=== PATIENT | female | born 1955 | race Caucasian/White ===

== ENCOUNTER → 2017-04-16 | Day surgery (SDC) | payer BC ==
[~2017-04-16] MED LIST: CELEXA PO; LEVOTHYROXINE112 MCG PO; LISINOPRIL PO; MOBIC PO; PROBIOTIC1 EAC2 PO; SYNTHROID PO
--- NOTE | ~2017-04-16 | OR ---
Unit #: [id number] #: [id number] Patient: KAHLIL CABRERA [id number] [address] [place], [place] [address] [id number] MR#: [id number] NAME: KAHLIL CABRERA ROOM: Date of Procedure: 04/16/2017 Admission Date: 04/16/2017 Surgeon: Kurt Haney M.D. : 1955 Attending Physician: Kurt Haney M.D. Primary Care Physician: Tuan Hare M.D. OPERATIVE REPORT PREOPERATIVE DIAGNOSIS Screening colonoscopy. POSTOPERATIVE DIAGNOSIS Scattered diverticulum. PROCEDURE PERFORMED Colonoscopy to cecum. ANESTHESIA IV sedation. COMPLICATIONS None. INDICATIONS FOR PROCEDURE The patient is a 61-year-old, who presents for screening colonoscopy. DESCRIPTION OF PROCEDURE The patient was taken to the operating theater and placed in left lateral decubitus position. IV sedation was initiated. Digital rectal exam was normal. Colonoscope was then passed under direct vision and navigated to the cecum. The patient had excellent prep. I visualized the entire colon. I saw no evidence of neoplastic disease. She did have scattered diverticulum throughout the colon. These were noninflamed. There were no other abnormalities. She tolerated the procedure well and sent to the recovery room in good condition. PLAN Recommend Colace on a daily basis. We will also follow up in 10 years for repeat endoscopy. Dictated by... Dominique BetancourtO/edwinl TD: 04/16/2017 15:58 JOB #: [id number] Unit #: [id number] #: [id number] Patient: KAHLIL CABRERA OPERATIVE REPORT Page 1 of 1 X Kurt Haney MD X PROCEDURE OPERATIVE NOTE
== END | disposition home or self-care (01) ==
LOC: COPS 10:25
DX: Z12.11 Encounter for screening for malignant neoplasm of colon (principal); K57.30 Diverticulosis of large intestine without perforation or abscess without bleeding; E03.9 Hypothyroidism, unspecified; E66.01 Morbid (severe) obesity due to excess calories; Z72.4 Inappropriate diet and eating habits; Z68.25 Body mass index [BMI] 25.0-25.9, adult; Z79.1 Long term (current) use of non-steroidal anti-inflammatories (NSAID); Z79.899 Other long term (current) drug therapy; Z98.84 Bariatric surgery status; Z90.49 Acquired absence of other specified parts of digestive tract; Z98.51 Tubal ligation status; Z96.643 Presence of artificial hip joint, bilateral; Z96.612 Presence of left artificial shoulder joint
CPT/HCPCS: J2250